=== PATIENT | male | born 1945 | race Caucasian/White ===

== ENCOUNTER 2024-03-21 07:04 | Outpatient (CLI) | payer MEDICARE, BC ==
[2024-03-21] MEDS ORDERED: barium sulfate 340gm for oral suspension 1 BOTTLE SUSP.RECON PO ONE (09:00)
== END 2024-03-21 23:59 | disposition home or self-care (01) ==
LOC: RAD 07:04
PROVIDERS: ATTEND Family Medicine
DX: K44.9 Diaphragmatic hernia without obstruction or gangrene (principal); K21.9 Gastro-esophageal reflux disease without esophagitis
CPT/HCPCS: 74220